=== PATIENT | female | born 1990 | race Caucasian/White ===

== ENCOUNTER 2017-05-26 19:22 | Observation (INO) | payer MEDICAID ==
[~2017-05-26] VITALS: Ht 162.6 cm; Wt 66.7 kg
[~2017-05-26 19:22] MED LIST: CLIN1CAP6 PO; TRAM50 PO
[2017-05-26] MEDS ORDERED: LACTATED RINGER'S 1000 ML INJ 1,000 ML IV PRN (20:41)
[2017-05-26] MEDS ORDERED: ONDANSETRON HCL 4 MG/2 ML VIAL IV PRN (20:45)
[2017-05-26] MEDS ORDERED: SODIUM CHLORID 0.9% 500 ML INJ 500 ML IV PRN (20:45)
--- NOTE | 2017-05-26 20:47 | PD ---
HPI Chief Complaint vaginal bleeding Travel History International Travel<30 Days: No Contact w/Intl Traveler<30Days: No Known Affected Area: No History of Present Illness HPI 26y/o , IUP at [address] Altman and is complicated by 1. h/o IVDA (reports last use 2015) 2. h/o chlamydia in past 3. h/o abnl PAP after last , normal since Patient presents c/o onset of "heavy bleeding" after intercourse tonight at about 6pm. She reports the bleeding started during intercourse and was like a heavy period; although she didn't use a pad, she had to keep wiping the blood and had blood running down her legs. She also reports some small cots about 1cm x 2cm. There were no alleviating factors. She has continued to bleed. She denies any LOF. She reports good FM. She denies any painful ctx or cramping. Para: 1 : 2 Miscarriage: 0 : 0 History Past Medical History Narrative Medical IVDA, last use 2015 Obstetric History Obstetric History FT H/o abnl PAP after 1st delivery, normal since h/o chlamydia Menarche at 11 Menses q month Menses last 4d Past Surgical History Narrative Surgical Denies Family History Narrative Family History DM Social History Narrative Social History h/o IVDA Denies current drugs/EtOH/tobacco Allergies-Medications (Allergen,Severity, Reaction): Coded Allergies: *MDRO Multi-Drug Resistant Organism (Unverified Adverse Reaction, Unknown , 12/19/15) MRSA (wound) - 07/2014 Home Meds Reported Medications Gabapentin 300 Mg Cnh131 Mg PO HS #30 CAP Ref 0 05/26/17 Docosahexaenoic Acid ( Dha)200 Mg Cap Daily 05/26/17 Discontinued Scripts Tramadol Hcl (Ultram)50 Mg Tab50 Mg PO BID PRN (severe pain ) #12 TAB Prov:Alissa Pham MD 12/20/15 Clindamycin Hcl (Clindamycin Hcl)300 Mg Seo825 Mg PO Q6HR 10 Days Prov:Dominic Prieto 12/20/15 Review of Systems Except as stated in HPI: all other systems reviewed are Neg Genitourinary: Vaginal Bleeding Physical Exam Narrative VSS AF, A&Ox3, NAD GENERAL: Well-nourished, well-developed patient. SKIN: Warm and dry. HEAD: Normocephalic and atraumatic. EYES: No scleral icterus. No injection or drainage. ENT: No nasal drainage noted. Mucous membranes pink. Airway patent. NECK: Supple, trachea midline. No JVD. CARDIOVASCULAR: Regular rate and rhythm without murmurs, gallops, or rubs. RESPIRATORY: Breath sounds equal bilateral, clear bilaterally, no wheeze/rhales ABDOMEN/GI: Abdomen soft, non-tender, bowel sounds present, no rebound, no guarding Gravid GENITOURINARY: External Genitalia: intact and normal in appearance BUS glands: normal Cervix: no cervical/vaginal masses, speculum exam reveals vault with dark blood that filled end of speculum, does not appear to be active bleeding at this time, approximately 75cc in vault Dilatation: closed Effacement: thick Station: high Presentation: posterior Membranes: [intact] Uterine Contractions: [no regular ctx, none noted in SAIGE] FHT's: Category: [1] Baseline: [130s] Reactive: [y] Variability: [moderate] Decels: [no decels, good accels] EXTREMITIES: No cyanosis or edema. BACK: Nontender without obvious deformity. No CVA tenderness. NEUROLOGICAL: Awake and alert. Motor and sensory grossly within normal limits. Five out of 5 muscle strength in all muscle groups. Normal speech. MS: grossly normal ROM, gait, muscle strength PSYCH: grossly normal memory, affect Data Data Orders Ob (2e) Additional Admit Info (05/26/17 20:38) Vital Signs (Adult) .ON ADMISSION (05/26/17 20:37) ^ Labor Status (05/26/17 20:37) ^ Non Stress Test (05/26/17 20:37) Cbc No Diff, Includes Plts (05/26/17 20:37) Type And Screen (05/26/17 20:37) Diet Clear Liquid (05/27/17 Breakfast) Code Status (05/26/17 20:41) Vital Signs (Adult) .Per protocol (05/26/17 20:41) Heart (05/26/17 20:41) Lactated Ringer's 1000 Ml Inj (Lr 1000 M (05/26/17 20:41) Sodium Chlorid 0.9% 500 Ml Inj (Ns 500 M (05/26/17 20:45) Ondansetron Inj (Zofran Inj) (05/26/17 20:45) Hold Clot (05/26/17 20:41) Abo/Rh Blood Type (05/26/17 20:41) Resp Oxygen Non Rebreathe Mask (05/26/17 ) Place In Observation (05/26/17 ) Scd Bilateral/Knee High NAHUM.QSHIFT (05/26/17 20:44) Hydroxyzine Pamoate (Vistaril) (05/26/17 21:00) MDM Plan A/P: 26y/o 1. IUP at 27.1 2. Postcoital bleeding: no evidence of placental injury/retroplacental clot on limited bedside U/S, unable to visualize active bleeding from cervix but spme blood pooling in vagina. WD/W Dr. Mckenna, will admit for 23h obsv due to heavier -than-expected VB, continue EFM overnight, check Hgb and T&S as below. Discussed observation with patient/partner who are in agreement; discussed potential for urgent C/S if indicated for /maternal status although unlikely, discussed that with current reassuring status, would not anticipate need for C/S, but discussed risks of procedure if indicated. Consider OB US in am if bleeding continues or if desired by primary Ob, no urgent indication for OB Diagnostics to perform tonight 3. wellbeing: reassuring testing, reactive NST, FKC daily, continue EFM overnight 4. h/o IVDA: patient reports she's been clean since 2016 and partner is clean as well, will check UDS 5. Hgb 11.0 6. O+ Elisa Rodgers MD May 26, 2017 20:47
--- NOTE | 2017-05-26 20:49 | PD ---
History of Present Illness History of Present Illness NST report Indications: IUP at 27w, h/o IVDA, vaginal bleeding Baseline 140s Good accels, no decels, moderate LTV No ctx noted Final dx: IUP at 27w, postcoital bleeding, reassuring testing, reactive for gestational age F/U with continued EFM Elisa Rodgers MD May 26, 2017 20:49
--- NOTE | 2017-05-26 21:02 | PD ---
History of Present Illness History of Present Illness Limited Bedside US report Indications: IUP at 27w. h/o IVDA, vaginal bleeding Limited bedside US performed to assess placenta, position, and JUSTIN, no anatomy survey performed. Findings: placenta appeared grossly normal, no evidence of retroplacental clot noted. JUSTIN 6.01/4.29/2.27/4.21 (16.78). Good movement throughout including Extension/flexion noted. Breech Final dx: IUP at 27, h/o IVDA, postcoital bleeding, limited US without significant findings Elisa Rodgers MD May 26, 2017 21:02
[2017-05-26] MEDS ORDERED: DOCO200C (21:20)
[2017-05-26] MEDS ORDERED: GABA300C5 PO (21:20)
--- NOTE | 2017-05-26 21:49 | HHI.HP ---
History & Physical H&P Observation H&P PI Chief Complaint vaginal bleeding Travel History International Travel<30 Days: No Contact w/Intl Traveler<30Days: No Known Affected Area: No History of Present Illness HPI 26y/o , IUP at 27.[address] Altman and is complicated by 1. h/o IVDA (reports last use 2015) 2. h/o chlamydia in past 3. h/o abnl PAP after last , normal since Patient presents c/o onset of "heavy bleeding" after intercourse tonight at about 6pm. She reports the bleeding started during intercourse and was like a heavy period; although she didn't use a pad, she had to keep wiping the blood and had blood running down her legs. She also reports some small cots about 1cm x 2cm. There were no alleviating factors. She has continued to bleed. She denies any LOF. She reports good FM. She denies any painful ctx or cramping. Para: 1 : 2 Miscarriage: 0 : 0 History (Limited) History Past Medical History Narrative Medical IVDA, last use 2015 Obstetric History Obstetric History FT H/o abnl PAP after 1st delivery, normal since h/o chlamydia Menarche at 11 Menses q month Menses last 4d Past Surgical History Narrative Surgical Denies Family History Narrative Family History DM Social History Narrative Social History h/o IVDA Denies current drugs/EtOH/tobacco Allergies-Medications Allergies-Medications (Allergen,Severity, Reaction): Coded Allergies: *MDRO Multi-Drug Resistant Organism (Unverified Adverse Reaction, Unknown , 12/19/15) MRSA (wound) - 07/2014 Home Meds Reported Medications Gabapentin 300 Mg [id number] Mg PO HS #30 CAP Ref 0 05/26/17 Docosahexaenoic Acid ( Dha)200 Mg Cap Daily 05/26/17 Discontinued Scripts Tramadol Hcl (Ultram)50 Mg Tab50 Mg PO BID PRN (severe pain ) #12 TAB Prov:Alissa Pham MD 12/20/15 Clindamycin Hcl (Clindamycin Hcl)300 Mg Bva359 Mg PO Q6HR 10 Days Prov:Dominic Prieto 12/20/15 ROS Review of Systems Except as stated in HPI: all other systems reviewed are Neg Genitourinary: Vaginal Bleeding Physical Exam Physical Exam Narrative VSS AF, A&Ox3, NAD GENERAL: Well-nourished, well-developed patient. SKIN: Warm and dry. HEAD: Normocephalic and atraumatic. EYES: No scleral icterus. No injection or drainage. ENT: No nasal drainage noted. Mucous membranes pink. Airway patent. NECK: Supple, trachea midline. No JVD. CARDIOVASCULAR: Regular rate and rhythm without murmurs, gallops, or rubs. RESPIRATORY: Breath sounds equal bilateral, clear bilaterally, no wheeze/rhales ABDOMEN/GI: Abdomen soft, non-tender, bowel sounds present, no rebound, no guarding Gravid GENITOURINARY: External Genitalia: intact and normal in appearance BUS glands: normal Cervix: no cervical/vaginal masses, speculum exam reveals vault with dark blood that filled end of speculum, does not appear to be active bleeding at this time, approximately 75cc in vault Dilatation: closed Effacement: thick Station: high Presentation: posterior Membranes: [intact] Uterine Contractions: [no regular ctx, none noted in SAIGE] FHT's: Category: [1] Baseline: [130s] Reactive: [y] Variability: [moderate] Decels: [no decels, good accels] EXTREMITIES: No cyanosis or edema. BACK: Nontender without obvious deformity. No CVA tenderness. NEUROLOGICAL: Awake and alert. Motor and sensory grossly within normal limits. Five out of 5 muscle strength in all muscle groups. Normal speech. MS: grossly normal ROM, gait, muscle strength PSYCH: grossly normal memory, affect Data Data Data Orders Ob (2e) Additional Admit Info (05/26/17 20:38) Vital Signs (Adult) .ON ADMISSION (05/26/17 20:37) ^ Labor Status (05/26/17 20:37) ^ Non Stress Test (05/26/17 20:37) Cbc No Diff, Includes Plts (05/26/17 20:37) Type And Screen (05/26/17 20:37) Diet Clear Liquid (05/27/17 Breakfast) Code Status (05/26/17 20:41) Vital Signs (Adult) .Per protocol (05/26/17 20:41) Heart (05/26/17 20:41) Lactated Ringer's 1000 Ml Inj (Lr 1000 M (05/26/17 20:41) Sodium Chlorid 0.9% 500 Ml Inj (Ns 500 M (05/26/17 20:45) Ondansetron Inj (Zofran Inj) (05/26/17 20:45) Hold Clot (05/26/17 20:41) Abo/Rh Blood Type (05/26/17 20:41) Resp Oxygen Non Rebreathe Mask (05/26/17 ) Place In Observation (05/26/17 ) Scd Bilateral/Knee High NAHUM.QSHIFT (05/26/17 20:44) Hydroxyzine Pamoate (Vistaril) (05/26/17 21:00) MDM MDM Plan A/P: 26y/o 1. IUP at 27.1 2. Postcoital bleeding: no evidence of placental injury/retroplacental clot on limited bedside U/S, unable to visualize active bleeding from cervix but spme blood pooling in vagina. WD/W Dr. Mckenna, will admit for 23h obsv due to heavier -than-expected VB, continue EFM overnight, check Hgb and T&S as below. Discussed observation with patient/partner who are in agreement; discussed potential for urgent C/S if indicated for /maternal status although unlikely, discussed that with current reassuring status, would not anticipate need for C/S, but discussed risks of procedure if indicated. Consider OB US in am if bleeding continues or if desired by primary Ob, no urgent indication for OB Diagnostics to perform tonight 3. wellbeing: reassuring testing, reactive NST, FKC daily, continue EFM overnight 4. h/o IVDA: patient reports she's been clean since 2016 and partner is clean as well, will check UDS 5. Hgb 11.0 6. O+ Elisa Rodgers MD May 26, 2017 20:47 Elisa Rodgers MD May 26, 2017 21:49
[2017-05-26 23:00] VITALS: BP 110/62; PULSE 78; RESP 18; TEMP 98
[2017-05-27 00:02] LABS: AMPHETAMINE, URINE NEG (NEG); BARBITURATES, URINE NEG (NEG); COCAINE, URINE NEG (NEG)
[2017-05-27 01:03] LABS: HEMATOCRIT 33.1 % (35.0-46.0); MEAN CELL VOLUME 87.9 FL (80.0-100.0); MEAN CORPUSCULAR HEMOGLOBIN 29.1 PG (27.0-34.0); MEAN CORPUSCULAR HGB CONC 33.1 % (32.0-36.0); PLATELET COUNT 211 TH/MM3 (150-450); RED BLOOD COUNT 3.77 MIL/MM3 (4.00-5.30); RED CELL DISTRIBUTION WIDTH 13.5 % (11.6-17.2); REVIEW FLAG FINAL; WHITE BLOOD COUNT 8.7 TH/MM3 (4.0-11.0)
[2017-05-27 06:22] LABS: MRSA PCR NEGATIVE (NEGATIVE); STAPH AUREUS PCR NEGATIVE (NEGATIVE)
[2017-05-27 07:41] VITALS: RESP 18; TEMP 98
[2017-05-27 07:42] VITALS: BP 92/57; PULSE 63
--- NOTE | 2017-05-27 09:15 | HHI.DCPOC ---
Discharge Care Plan Report Symptoms to Your Doctor -Temperature above 100.5 degrees -Redness, of incision or excessive or foul smelling drainage -Unusual pain or calf pain -Increased vaginal bleeding -Painful or difficulty urinating -Feelings of extreme sadness or anxiety after 2 weeks Goals to Promote Your Health * To prevent worsening of your condition and complications * To maintain your health at the optimal level Directions to Meet Your Goals Take your medications as prescribed Follow your dietary instruction Follow activity as directed Ensure plenty of rest for recovery Drink fluids for hydration Keep your appointments as scheduled Take your immunizations and boosters as scheduled If your symptoms worsen call your PCP, if no PCP go to Urgent Care Center or Emergency Room Smoking is Dangerous to Your Health. Avoid second hand smoke Call the 24-hour crisis hotline for domestic abuse at Talia Altman MD May 27, 2017 09:15
--- NOTE | 2017-05-27 09:15 | PD.OB.ANTE ---
Subjective Interval History 26 yo wf at 27 weeks with episode significant bleeding post sex. No hx previa. Good PNC with HOGA Has resolved and work up reassuring. Ok to discharge this am and have seen this week with complete sonogram for completeness. Objective Vital Signs Vital Signs Date Time Temp Pulse Resp B/P Pulse Ox O2 Delivery O2 Flow Rate FiO2 05/27/17 07:42 63 92/57 05/27/17 07:41 98.0 18 05/26/17 23:00 78 18 110/62 05/26/17 23:00 98.0 Lab & Micro Results Test 05/26/17 05/27/17 05/27/17 23:30 00:26 00:30 Urine Opiates Screen NEG Urine Barbiturates Screen NEG Urine Amphetamines Screen NEG Urine Benzodiazepines Screen NEG Urine Cocaine Screen NEG Urine Cannabinoids Screen NEG White Blood Count 8.7 TH/MM3 Red Blood Count 3.77 MIL/MM3 Hemoglobin 11.0 GM/DL Hematocrit 33.1 % Mean Corpuscular Volume 87.9 FL Mean Corpuscular Hemoglobin 29.1 PG Mean Corpuscular Hemoglobin 33.1 % Concent Red Cell Distribution Width 13.5 % Platelet Count 211 TH/MM3 Mean Platelet Volume 9.5 FL Hematology Comments Blood Type O POSITIVE Blood Bank Comment Band and Hold Nasal Screen MRSA (PCR) NEGATIVE Staphylococcus aureus NEGATIVE (PCR)(LAB) Physical Exam GENERAL: Well-nourished, well-developed patient. CARDIOVASCULAR: Regular rate and rhythm without murmurs, gallops, or rubs. RESPIRATORY: Breath sounds equal bilaterally. No accessory muscle use. ABDOMEN/GI: Abdomen soft, non-tender. Fundus: [-] GENITOURINARY: External Genitalia: intact and normal in appearance Cervix: [-] Dilatation: [-] Effacement: [-] Station: [-] Presentation: [-] Membranes: [-] Uterine Contractions: [-] FHT's: Category: [-] Baseline: [-] Reactive: [-] Variability: [-] Decels: [-] EXTREMITIES: No cyanosis or edema, non-tender, without signs of DVT. Talia Altman MD May 27, 2017 09:15
[2017-05-30 10:44] LABS: ECSTASY (MDMA) UR NEG (NEG); HEROIN (6-ACETYLMORPHINE) UR NEG (NEG); OBMETHADONE UR NEG (NEG); PHENCYCLIDINE URINE NEG (NEG)
[2017-05-30 10:45] LABS: BATH SALTS (MDPV) UR NEG (NEG); K2 SPICE UR NEG (NEG); OXYCODONE (PERCODAN) NEG (NEG)
[2017-05-30 10:46] LABS: GABAPENTIN UR POS (NEG); HYDROMORPHONE U NEG (NEG)
== END 2017-05-27 10:06 | disposition home or self-care (01) ==
LOC: HOBED 19:22 → H2EA 20:42
PROVIDERS: ADMIT Obstetrics & Gynecology; ATTEND Obstetrics & Gynecology
DX: O46.8X2 Other antepartum hemorrhage, second trimester (principal); Z79.899 Other long term (current) drug therapy; Z3A.27 27 weeks gestation of pregnancy
CPT/HCPCS: 80307; 85027; 86900; 86901; 87640; 87641; 99285; G0378; G0481

== ENCOUNTER 2017-07-25 16:15 | Observation (INO) | payer MEDICAID ==
[~2017-07-25 16:15] MED LIST changes: -CLIN1CAP6 PO; +DOCO200C; +GABA300C5 PO; -TRAM50 PO
[2017-07-25] MEDS ORDERED: SODIUM CHLORIDE 0.9% FLUSH 10 ML FLUSH IV FLUSH PRN (17:30)
[2017-07-25] MEDS ORDERED: ONDANSETRON ODT 4 MG TAB PO PRN (17:30)
[2017-07-25] MEDS ORDERED: ZOLPIDEM TARTRATE 5 MG TAB PO PRN (17:30)
[2017-07-25] MEDS ORDERED: cloNIDine HCL 0.1 MG TAB PO PRN (17:30)
--- NOTE | 2017-07-25 17:43 | HHI.HP ---
HPI Chief Complaint High blood pressure and continued drug abuse Date Seen: Jul 25, 2017 Time Seen: 17:29 Travel History International Travel<30 Days: No Contact w/Intl Traveler<30Days: No Known Affected Area: No History of Present Illness HPI Patient 27-year-old white female at 36 weeks [address] of [address]. Garrison who has a long history of IV drug abuse. She was user for quite some time and get clean after a while is been clean up until recently when she relapses have been using cocaine and IV opiates recently, she was checked today and noted to have a blood pressure 140/90 on several occasions and was sent OB ED. She denies bleeding or leakage of fluid. Baby is active. heart rate tracing is reactive and she is having an occasional contraction. She is currently acted Weeks Gestation: 36 Para: 1 : 2 History Obstetric History Obstetric History One vaginal delivery Social History Narrative Social History History of IV drug abuse and cocaine use. Opiate use Alcohol Use: Yes Tobacco Use: Yes Substance Abuse: Yes Allergies-Medications (Allergen,Severity, Reaction): Coded Allergies: *MDRO Multi-Drug Resistant Organism (Unverified Adverse Reaction, Unknown , 12/19/15) MRSA (wound) - 07/2014 Home Meds Reported Medications Gabapentin (Gabapentin) 300 Mg Cap, 300 MG PO HS, #30 CAP 0 Refills 05/26/17 Docosahexaenoic Acid ( Dha) 200 Mg Cap, DAILY 05/26/17 Review of Systems General / Constitutional: No: Fever, Weight Gain, Chills, Other Eyes: No: Diploplia, Blurred Vision, Visual changes, Pain, Photophobia HENT: No: Headaches, Vertigo, Lightheadedness Cardiovascular: No: Irregular Rhythm, Chest Pain or Discomfort, Palpitations, Tachycardia, Syncope, Varicosities, Edema, Cyanosis Respiratory: No: Cough, Short of Breath, Other Gastrointestinal: No: Nausea, Vomiting, Diarrhea Genitourinary: No: Decreased Urinary Output, Oliguria Musculoskeletal: No: Limited ROM, Weakness, Cramping, Edema, Pain Skin: No Rash, No Itching, No Dryness, No Lumps, No Change in Pigmentation, No Change in Nails, No Alopecia, No Lesions Neurologic: No: Weakness, Dizziness, Syncope, Focal Abnormalities, Coordination Problem, Headache, Slurred Speech, Seizures Psychiatric: No: Depression, Suicidal Ideations, Homicidal Ideation Endocrine: No: Heat Intolerance, Cold Intolerance, Polydipsia, Polyuria, Other Physical Exam Narrative GENERAL: Well-nourished, well-developed patient. SKIN: Warm and dry. HEAD: Normocephalic and atraumatic. EYES: No scleral icterus. No injection or drainage. ENT: No nasal drainage noted. Mucous membranes pink. Airway patent. NECK: Supple, trachea midline. No JVD. CARDIOVASCULAR: Regular rate and rhythm without murmurs, gallops, or rubs. RESPIRATORY: Breath sounds equal bilaterally. No accessory muscle use. BREASTS: Bilateral exam showed no masses , no retractions, no nipple discharge. ABDOMEN/GI: Abdomen soft, non-tender, bowel sounds present, no rebound, no guarding Gravid to [-36] weeks size Fundal Height: [-34] GENITOURINARY: External Genitalia: intact and normal in appearance BUS glands: [-] Cervix: [-] Dilatation: [-2-3] Effacement: [-60] Station: [-1] Presentation: [vtx-] by US Membranes: [intact ] Uterine Contractions: [occasional-] FHT's: Category: [1-] Baseline: [-133] Reactive: [-yes] Variability: [mod-] Decels: [none-] EXTREMITIES: No cyanosis or edema. BACK: Nontender without obvious deformity. No CVA tenderness. NEUROLOGICAL: Awake and alert. Motor and sensory grossly within normal limits. Five out of 5 muscle strength in all muscle groups. Normal speech. Caprini VTE Risk Assessment Caprini VTE Risk Assessment: No/Low Risk (score <= 1) Caprini Risk Assessment Model Point Value = 1 Point Value = 2 Point Value = 3 Point Value = 5 Age 41-60 Minor surgery BMI > 25 kg/m2 Swollen legs Varicose veins or History of unexplained or recurrent spontaneous Oral contraceptives or hormone replacement Sepsis (< 1 month) Serious lung disease, including pneumonia (< 1 month) Abnormal pulmonary function Acute myocardial infarction Congestive heart failure (< 1 month) History of inflammatory bowel disease Medical patient at bed rest Age 61-74 Arthroscopic surgery Major open surgery (> 45 min) Laparoscopic surgery (> 45 min) Malignancy Confined to bed (> 72 hours) Immobilizing plaster cast Central venous access Age >= 75 History of VTE Family history of VTE Factor V Leiden Prothrombin [id number] Lupus anticoagulant Anticardiolipin antibodies Elevated serum homocysteine Heparin-induced thrombocytopenia Other congenital or acquired thrombophilia Stroke (< 1 month) Elective arthroplasty Hip, pelvis, or leg fracture Acute spinal cord injury (< 1 month) Prophylaxis Regimen Total Risk Factor Score Risk Level Prophylaxis Regimen 0-1 Low Early ambulation 2 Moderate Order ONE of the following: *Sequential Compression Device (SCD) *Heparin 5000 units SQ BID 3-4 Higher Order ONE of the following medications: *Heparin 5000 units SQ TID *Enoxaparin/Lovenox 40 mg SQ daily (WT < 150 kg, CrCl > 30 mL/min) *Enoxaparin/Lovenox 30 mg SQ daily (WT < 150 kg, CrCl > 10-29 mL/min) *Enoxaparin/Lovenox 30 mg SQ BID (WT < 150 kg, CrCl > 30 mL/min) AND/OR *Sequential Compression Device (SCD) 5 or more Highest Order ONE of the following medications: *Heparin 5000 units SQ TID (Preferred with Epidurals) *Enoxaparin/Lovenox 40 mg SQ daily (WT < 150 kg, CrCl > 30 mL/min) *Enoxaparin/Lovenox 30 mg SQ daily (WT < 150 kg, CrCl > 10-29 mL/min) *Enoxaparin/Lovenox 30 mg SQ BID (WT < 150 kg, CrCl > 30 mL/min) AND *Sequential Compression Device (SCD) Data Data Orders Orders Ob (2e) Additional Admit Info (07/25/17 17:27) Place In Observation (07/25/17 ) Diet Regular Basic (07/25/17 Dinner) Vital Signs (Adult) [id number] AWAKE (07/25/17 17:25) Heart (07/25/17 17:25) Activity Bed Rest With Brp (07/25/17 17:25) Complete Blood Count With Diff (07/25/17 17:25) Basic Metabolic Panel (Bmp) (07/25/17 17:25) Hepatic Functional Panel (07/25/17 17:25) Total Protein 24hr Urine (07/25/17 17:25) Uric Acid (07/25/17 17:25) Urinalysis - C+S If Indicated (07/25/17 17:25) [id number]-Pktek-Iron Prenat (Stuartna (07/26/17 09:00) Sodium Chloride 0.9% Flush (Ns Flush) (07/25/17 21:00) Sodium Chloride 0.9% Flush (Ns Flush) (07/25/17 17:30) Zolpidem (Ambien) (07/25/17 17:30) Ondansetron Odt (Zofran Odt) (07/25/17 17:30) Us Ob Limited (07/26/17 09:00) Ob/Psych Drug Screen, Urine (07/25/17:25) Hold Clot (07/25/17:25) Ferrous Sulfate (Ferrous Sulfate) (07/25/17 21:00) Clonidine (Catapres) (07/25/17 17:30) Hydroxyzine Pamoate (Vistaril) (07/25/17 17:30) Assessment/Plan Assessment and Plan Is a 27-year-old white female at 36 weeks tomorrow presents for evaluation of hypertension. She has a history of IV drug abuse and relapsed the use of IV drugs opiates. heart rate tracing is reactive she is having occasional contraction, cervix 2-3 cm 60% -1 vertex confirmed by ultrasound. Only occasional contractions seen. No bleeding or leakage of fluid. Plan patient is to was discussed with Dr. Altman 1 admit the patient for observation and she is within orders. Check a urine and PIH labs and follow-up accordingly Deepak Weinberg II, MD Jul 25, 2017 17:42
[2017-07-25 20:09] LABS: AUTOMATED NEUTROPHIL # 4.9 TH/MM3 (1.8-7.7); BASOPHIL # 0.1 TH/MM3 (0-0.2); BASOPHIL % 0.9 % (0.0-2.0); EOSINOPHIL # 0.1 TH/MM3 (0-0.4); EOSINOPHIL % 1.4 % (0.0-4.0); HEMATOCRIT 38.1 % (35.0-46.0); HEMO FLAGS DIFF FINAL; LYMPH % 25.1 % (9.0-44.0); LYMPHOCYTE # 1.9 TH/MM3 (1.0-4.8); MEAN CELL VOLUME 86.9 FL (80.0-100.0); MEAN CORPUSCULAR HEMOGLOBIN 29.1 PG (27.0-34.0); MEAN CORPUSCULAR HGB CONC 33.5 % (32.0-36.0); MONO % 6.5 % (0.0-8.0); NEUT % 66.1 % (16.0-70.0); PLATELET COUNT 244 TH/MM3 (150-450); RED BLOOD COUNT 4.39 MIL/MM3 (4.00-5.30); RED CELL DISTRIBUTION WIDTH 13.4 % (11.6-17.2); WHITE BLOOD COUNT 7.4 TH/MM3 (4.0-11.0)
[2017-07-25 20:12] LABS: BACTERIA, URINE RARE /hpf; BLOOD, URINE NEG (NEG); COMMENT (UR) CULT NOT INDICATED; CULTURE IF INDICATED CULT NOT INDICATED; GLUCOSE,URINE NEG (NEG); KETONE, URINE NEG (NEG); NITRITE,URINE NEG (NEG); PH, URINE 6.5 (5.0-8.5); SQUAMOUS EPITHELIAL CELL URINE 1 /hpf (0-5); URINE COLOR YELLOW (YELLW/STRAW)
[2017-07-25 20:37] LABS: TOTAL BILIRUBIN ADULT 0.8 MG/DL (0.2-1.0)
[2017-07-25 20:41] LABS: BICARBONATE 25.9 MEQ/L (21.0-32.0); INDIRECT BILIRUBIN 0.7 MG/DL (0.0-0.8); URIC ACID 5.2 MG/DL (2.6-6.0)
[2017-07-25 21:09] LABS: POTASSIUM 4.2 MEQ/L (3.5-5.1)
[2017-07-25] MEDS: FERROUS SULFATE 325 MG (65 MG ELEMENTAL IRON) TAB PO SCH (21:38)
[2017-07-25] MEDS: SODIUM CHLORIDE 0.9% FLUSH 10 ML FLUSH IV FLUSH SCH (21:39)
[2017-07-26] VITALS (23 sets, daily range): BP systolic 115–126; BP diastolic 66–80; PULSE 48–78; RESP 16–18; TEMP 97.8
[2017-07-26] MEDS: SODIUM CHLORIDE 0.9% FLUSH 10 ML FLUSH IV FLUSH SCH (09:00)
[2017-07-26] MEDS ORDERED: MULTIVIT/MIN/PREN/FOL AC/IRON PRENATAL TAB PO SCH (09:00)
--- NOTE | 2017-07-26 09:46 | HHI.DCPOC ---
Discharge Care Plan Diagnosis: (1) IV drug abuse complicating Goals to Promote Your Health * To prevent worsening of your condition and complications * To maintain your health at the optimal level Directions to Meet Your Goals Take your medications as prescribed Follow your dietary instruction Follow activity as directed Keep your appointments as scheduled Take your immunizations and boosters as scheduled If your symptoms worsen call your PCP, if no PCP go to Urgent Care Center or Emergency Room Smoking is Dangerous to Your Health. Avoid second hand smoke Call the 24-hour hour crisis hotline for domestic abuse at Cedric Mustafa MD, R2 Jul 26, 2017 09:46
[2017-07-26] MEDS: FERROUS SULFATE 325 MG (65 MG ELEMENTAL IRON) TAB PO SCH (10:38)
[2017-07-31 07:57] LABS: BATH SALTS (MDPV) UR NEG (NEG); ECSTASY (MDMA) UR NEG (NEG); HEROIN (6-ACETYLMORPHINE) UR NEG (NEG); K2 SPICE UR NEG (NEG); OBMETHADONE UR NEG (NEG); PHENCYCLIDINE URINE NEG (NEG)
[2017-07-31 08:00] LABS: GABAPENTIN UR POS (NEG)
[2017-07-31 08:01] LABS: HYDROMORPHONE U POS (NEG)
== END 2017-07-26 12:42 | disposition home or self-care (01) ==
LOC: HOBED 16:15 → H2EA 17:28
PROVIDERS: ADMIT Obstetrics & Gynecology; ATTEND Obstetrics & Gynecology
DX: O99.323 Drug use complicating pregnancy, third trimester (principal); F19.10 Other psychoactive substance abuse, uncomplicated; O16.3 Unspecified maternal hypertension, third trimester; O99.333 Smoking (tobacco) complicating pregnancy, third trimester; Z3A.36 36 weeks gestation of pregnancy
CPT/HCPCS: 59025; 76815; 76937; 80048; 80076; 80307; 81001; 84550; 85025; 99285; G0378; G0481; 76816

== ENCOUNTER 2017-07-28 04:10 | Inpatient (IN) | payer MEDICAID ==
[2017-07-28] VITALS (27 sets, daily range): BP systolic 123–162; BP diastolic 72–101; PULSE 47–68; RESP 16–20; TEMP 97.6–98.1
[~2017-07-28] VITALS: Ht 162.6 cm; Wt 66.0 kg
[2017-07-28] MEDS: LACTATED RINGER'S 1000 ML INJ 1,000 ML IV SCH ×2 (04:50→20:53)
[2017-07-28] MEDS ORDERED: LACTATED RINGER'S 1000 ML INJ 1,000 ML IV PRN (04:50)
[2017-07-28] MEDS ORDERED: SODIUM CHLORID 0.9% 500 ML INJ 500 ML IV PRN (05:00)
[2017-07-28] MEDS ORDERED: CITRIC ACID-SODIUM CITRATE LIQ 30 ML UDC PO SCH (05:00)
[2017-07-28] MEDS ORDERED: OXYTOCIN 30 UNITS-500ML PREMIX 500 ML IV ONE (05:00)
[2017-07-28] MEDS ORDERED: MINERAL OIL 10 ML VIAL TOPICAL PRN (05:00)
[2017-07-28] MEDS ORDERED: PENICILLIN G POTASSIUM INJ 5,000,000 UNITS in SODIUM CHLORIDE 0.9% INJ 100 ML IV ONE (05:00)
[2017-07-28] MEDS ORDERED: ONDANSETRON HCL 4 MG/2 ML VIAL IV PUSH PRN (05:00)
[2017-07-28] MEDS ORDERED: LIDOCAINE HCL 1% 50 ML VIAL I-DERMAL PRN (05:00)
[2017-07-28] MEDS ORDERED: LIDOCAINE HCL 1% 50 ML VIAL INFIL PRN (05:00)
[2017-07-28] MEDS ORDERED: SODIUM CHLOR 0.9% 1000 ML INJ 1,000 ML IV PRN (05:10)
--- NOTE | 2017-07-28 05:14 | HHI.HP ---
History & Physical H&P Patient Name: Ericka Patton Unit Number: [id number] Date of : 1990 Patient Status: Admitted Inpatient Attending Doctor: Talia Altman MD HPI HPI Chief Complaint Contractions and leaking fluid Date Seen: Jul 28, 2017 Time Seen: 05:01 Travel History International Travel<30 Days: No Contact w/Intl Traveler<30Days: No Known Affected Area: No History of Present Illness HPI 27-year-old 2 para 1 at 36 weeks 2 days gestation who reports that she was awakened about 3:30 with contractions and then had spontaneous leakage of fluid. She was marti every 2-3 minutes upon arrival with grossly ruptured membranes and meconium fluid noted. She is 4 cm 80% effaced -2 station and vertex. Weeks Gestation: 36 Para: 1 : 2 History (Limited) History Past Medical History Narrative Medical History of opiate addiction and cocaine positive drug screen and 3 days ago. She has a history of MRSA with a recent negative screen in May. She is on gabapentin 300mg 3 times a day Obstetric History Obstetric History One prior term vaginal delivery 7 lbs. 11 oz. care this with Dr. Altman Past Surgical History Narrative Surgical Skin abscess Family History Family History: Negative Social History Alcohol Use: No Tobacco Use: No Substance Abuse: Yes (opiates and cocaine) Allergies-Medications Allergies-Medications (Allergen,Severity, Reaction): Coded Allergies: *MDRO Multi-Drug Resistant Organism (Unverified Adverse Reaction, Unknown , 12/19/15) MRSA (wound) - 07/2014 Home Meds Reported Medications Gabapentin (Gabapentin) 300 Mg Cap, 300 MG PO HS, #30 CAP 0 Refills 05/26/17 Docosahexaenoic Acid ( Dha) 200 Mg Cap, DAILY 05/26/17 ROS Review of Systems Except as stated in HPI: all other systems reviewed are Neg Physical Exam Physical Exam Narrative GENERAL: Well-nourished, well-developed patient. SKIN: Warm and dry, no abscess HEAD: Normocephalic and atraumatic. EYES: No scleral icterus. No injection or drainage. ENT: No nasal drainage noted. Mucous membranes pink. Airway patent. NECK: Supple, trachea midline. No JVD. CARDIOVASCULAR: Regular rate and rhythm without murmurs, gallops, or rubs. RESPIRATORY: Breath sounds equal bilaterally. No accessory muscle use. ABDOMEN/GI: Abdomen soft, non-tender, bowel sounds present, no rebound, no guarding Gravid to [-] weeks size Fundal Height: [-35] GENITOURINARY: External Genitalia: intact and normal in appearance BUS glands: [Normal-] Cervix: [-] Dilatation: [4-] Effacement: [80-] Station: [-2-] Presentation: [-v] Membranes: [ruptured, meconium] Uterine Contractions: [-Every 2-3 moderate] FHT's: Category: [1-] Baseline: [140-] Reactive: [-] Variability: [Moderate-] Decels: [-] EXTREMITIES: No cyanosis or edema. BACK: Nontender without obvious deformity. No CVA tenderness. NEUROLOGICAL: Awake and alert. Motor and sensory grossly within normal limits. Five out of 5 muscle strength in all muscle groups. Normal speech. Data Data Data Orders Orders Ob (2e) Additional Admit Info (07/28/17 04:32) Admit To Inpatient (07/28/17 ) Code Status (07/28/17 04:50) Vital Signs (Adult) .Per protocol (07/28/17 04:50) Activity Oob Ad Apryl (07/28/17 04:50) Heart (07/28/17 04:50) Amnioinfusion (07/28/17 04:50) Urinary Catheter Management .ONCE (07/28/17 04:50) Diet Npo (07/28/17 Breakfast) Lactated Ringer's 1000 Ml Inj (Lr 1000 M (07/28/17 04:50) Lactated Ringer's 1000 Ml Inj (Lr 1000 M (07/28/17 04:50) Sodium Chlorid 0.9% 500 Ml Inj (Ns 500 M (07/28/17 05:00) Sodium Chlor 0.9% 1000 Ml Inj (Ns 1000 M (07/28/17 05:10) Lidocaine 1% Inj (50 Ml) (Xylocaine 1% I (07/28/17 05:00) Citric Acid-Sodium Citrate Liq (Bicitra (07/28/17 05:00) Ondansetron Inj (Zofran Inj) (07/28/17 05:00) Fentanyl Inj (Fentanyl Inj) (07/28/17 05:00) Fentanyl Inj (Fentanyl Inj) (07/28/17 05:00) Penicillin G Potassium Inj (Pfizerpen-G (07/28/17 05:00) Penicillin G Potassium Inj (Pfizerpen-G (07/28/17 09:00) Complete Blood Count With Diff (07/28/17 04:50) Hold Clot (07/28/17 04:50) Abo/Rh Blood Type (07/28/17 04:50) Urinalysis - C+S If Indicated (07/28/17 04:50) Resp Oxygen Non Rebreathe Mask (07/28/17 ) ^ Epidural / Intrathecal Infus (07/28/17 04:50) Oxytocin 30 Units-500ml Premix (Pitocin (07/28/17 05:00) Lidocaine 1% Inj (50 Ml) (Xylocaine 1% I (07/28/17 05:00) Light Mineral Oil (Muri-Lube Oil) (07/28/17 05:00) Inpatient Certification (07/28/17 ) Specimen To Be Collected PRN (07/28/17 04:50) MDM MDM Medical Record Reviewed: Yes Narrative Course / MDM Assessment: 27-year-old 2 para 1 at 36+ weeks' gestation in early active labor, #2 history of substance abuse this , #3 GBS unknown Plan: Admit for labor management. Penicillin for GBS prophylaxis. Dr. Cervantes was notified. Brandin Herr MD Jul 28, 2017 05:01 Brandin Herr MD Jul 28, 2017 05:14
[2017-07-28] MEDS ORDERED: PREN1TAB60 (05:20)
[2017-07-28] MEDS ORDERED: GABA300C5 PO (05:20)
[2017-07-28 05:27] LABS: BLOOD, URINE NEG (NEG); COMMENT (UR) CULT NOT INDICATED; CULTURE IF INDICATED CULT NOT INDICATED; GLUCOSE,URINE NEG (NEG); KETONE, URINE NEG (NEG); NITRITE,URINE NEG (NEG); SQUAMOUS EPITHELIAL CELL URINE 1 /hpf (0-5); TRANSITIONAL EPI CELLS, URINE 1 /hpf; URINE COLOR YELLOW (YELLW/STRAW)
[2017-07-28] MEDS ORDERED: OXYTOCIN 10 UNIT/ML AMP ONE (05:46)
[2017-07-28] MEDS ORDERED: ZOLPIDEM TARTRATE 5 MG TAB PO PRN (06:00)
[2017-07-28] MEDS ORDERED: BENZOCAINE 20% TOPICAL SPRAY 60 ML CAN TOPICAL PRN (06:00)
[2017-07-28] MEDS ORDERED: DOCUSATE SODIUM 50 MG/SENNA 8.6 MG TAB PO PRN (06:00)
[2017-07-28] MEDS ORDERED: ALUMINUM/MAGNESIUM/SIMETH 30 ML CUP PO PRN (06:00)
[2017-07-28] MEDS ORDERED: ONDANSETRON ODT 4 MG TAB PO PRN (06:00)
[2017-07-28] MEDS ORDERED: WITCH HAZEL 50%/GLYCERIN 12.5% 40 PAD JAR TOPICAL PRN (06:00)
--- NOTE | 2017-07-28 06:04 | PD.OB.DELI ---
Weeks gestation: 36 Gest age assessed date: Jul 28, 2017 Gest age assessed time: 04:50 Pt started active labor?: Yes Active labor start date: Jul 28, 2017 Active labor start time: 04:50 Medical induction of labor?: No Artificial rupture of membrane: No Anesthesia: None Episiotomy: None Vaginal Delivery: Normal, Precipitous Presentation: Occiput anterior, Vertex Nuchal Cord: None Delayed cord clamping (45 sec): No Infant: Male Delivery date: Jul 28, 2017 Delivery time: 05:44 One Minute : 9 Five Minute : 9 Weight: 5#6oz Placenta: Spontaneous delivery, Intact, 3 vessel cord Laceration: No lacerations Additional Information Called to the pt room for imminent delivery. Upon my arrival in the room the infant was already out. Cord blood samples obtained. The placenta delivered spontaneously. It was grossly normal and apparently intact. Hemostasis was obtained with massage and IM [id number] units. Brandin Herr MD Jul 28, 2017 06:04
[2017-07-28] MEDS: IBUPROFEN 600 MG TAB PO PRN ×2 (06:09→15:37)
[2017-07-28] MEDS: ACETAMINOPHEN 325 MG TAB PO PRN ×2 (06:10→15:36)
[2017-07-28] MEDS ORDERED: OXYTOCIN 10 UNIT/ML AMP IM ONE (06:15)
[2017-07-28] MEDS ORDERED: NIFEdipine 10 MG CAP ONE (07:08)
[2017-07-28] MEDS ORDERED: NIFEdipine 10 MG CAP PO ONE (07:45)
[2017-07-28] MEDS ORDERED: PENICILLIN G POTASSIUM INJ 2,500,000 UNITS in SODIUM CHLORIDE 0.9% INJ 100 ML IV SCH (09:00)
--- NOTE | 2017-07-28 15:07 | HHI.OB ---
Subjective Post Day: 0 Remarks Has not had blood work since admission thisam, precipitous delivery. Multiple attempts at obtaining labs unsuccessful. IV access team consulted. No ARTIS, no ruq pain. saw spots once this morning. Not present now Objective Vitals/I&O Vital Signs Date Time Temp Pulse Resp B/P (MAP) Pulse Ox O2 Delivery O2 Flow Rate FiO2 07/28/17 13:00 98.0 65 16 128/96 (107) 07/28/17 08:45 132/83 (99) 07/28/17 07:48 18 07/28/17 07:45 55 132/92 (105) 07/28/17 07:38 18 07/28/17 07:30 52 16 143/101 (115) 07/28/17 07:16 53 147/99 (115) 07/28/17 07:10 53 162/99 (120) 07/28/17 07:02 56 159/101 (120) 07/28/17 07:00 50 07/28/17 06:56 98.1 07/28/17 06:56 58 18 159/97 (117) 07/28/17 06:55 66 07/28/17 06:45 52 07/28/17 06:30 56 150/98 (115) 07/28/17 06:01 55 150/91 (110) 07/28/17 05:56 47 18 154/88 (110) Objective Remarks GENERAL: Well-nourished, well-developed patient. CARDIOVASCULAR: Regular rate and rhythm without murmurs, gallops, or rubs. RESPIRATORY: Breath sounds equal bilaterally. No accessory muscle use. ABDOMEN/GI: Abdomen soft, non-tender. Fundus: Firm, non-tender at umbilicus. GENITOURINARY: Light to moderate bleeding. EXTREMITIES: No cyanosis, non-tender, without signs of DVT. trace edema, normal reflexes Medications and IVs Current Medications Medications (Trade) Dose Ordered Sig/Jagruti Route Start Time Stop Time Status Last Admin Lactated Ringer's 1,000 ml @ 125 mls/hr Q8H IV 07/28/17 04:50 Lactated Ringer's 1,000 ml @ 3,000 mls/hr Q20M PRN IV 07/28/17 04:50 Sodium Chloride 1,000 ml @ 100 mls/hr Q10H PRN IV 07/28/17 05:10 (Xylocaine 1% Inj (50 ml)) 0.1 ml UNSCH X1 PRN I-DERMAL 07/28/17 05:00 07/31/17 04:59 (Bicitra Liq) 30 ml RETAIL KEY HOLDER PO 07/28/17 05:00 08/01/17 04:59 (Zofran Inj) 4 mg Q6H PRN IV PUSH 07/28/17 05:00 (fentaNYL INJ) 50 mcg Q1H PRN IV PUSH 07/28/17 05:00 (fentaNYL INJ) 100 mcg Q1H PRN IV PUSH 07/28/17 05:00 Penicillin G Potassium 2664215 units/Sodium Chloride 100 ml @ 200 mls/hr Q4H IV 07/28/17 09:00 (Xylocaine 1% Inj (50 ml)) 10 ml UNSCH X1 PRN INFIL 07/28/17 05:00 07/30/17 04:59 (Muri-Lube Oil) 10 ml UNSCH PRN TOPICAL 07/28/17 05:00 (Tylenol) 650 mg Q4H PRN PO 07/28/17 06:00 07/28/17 06:10 (Motrin) 600 mg Q6H PRN PO 07/28/17 06:00 07/28/17 06:09 (Americaine 20% Top Spr) 1 spray Q4H PRN TOPICAL 07/28/17 06:00 (Tucks Pads) 1 applic QID PRN TOPICAL 07/28/17 06:00 (Amelia-Colace) 2 tab Q12H PRN PO 07/28/17 06:00 (Ambien) 5 mg HS PRN PO 07/28/17 06:00 (M-M-R Ii Inj) 0.5 ml ONCE ONCE SQ 07/28/17 16:00 07/28/17 16:01 (Boostrix Inj) 0.5 ml ONCE ONCE IM 07/28/17 16:00 07/28/17 16:01 (Mag-Al Plus Susp Liq) 15 ml Q8H PRN PO 07/28/17 06:00 (Zofran Odt) 4 mg Q6H PRN PO 07/28/17 06:00 Assessment/Plan Problem List: (1) delivery ICD Codes: O60.10X0 - labor with delivery, unspecified trimester, not applicable or unspecified (2) IV drug abuse complicating ICD Codes: O99.320 - Drug use complicating , unspecified trimester; F19.90 - Other psychoactive substance use, unspecified, uncomplicated (3) Elevated BP without diagnosis of hypertension ICD Codes: R03.0 - Elevated blood-pressure reading, without diagnosis of hypertension Assessment and Plan PPD 0- elevated BP on admission and immediate pp recovery, given a dose of procardia on L&D. First elevated bp on pp recently and nurse contacted me for further evaluation; this is the first time I have been contacted about elevated BP(at 1430). Since she has not had labs or IV in place, iv access team consulted. Will order PIH labs, and Protein to cr ratio. If she does rule in for pre-eclampsia, will need to return to L&D for magnesium. She will be started on procardia xl 30mg daily to control BP presently. Pt does use cocaine , which is known to increase BP, cannot rule this out as a reason for hypertension (UDS is positive). Will AVOID any Beta blockers as this in contraindicated with cocaine use. Jennifer Cervantes MD Jul 28, 2017 15:07
[2017-07-28 15:36] LABS: AUTOMATED NEUTROPHIL # 9.2 TH/MM3 (1.8-7.7); BASOPHIL % 0.3 % (0.0-2.0); EOSINOPHIL % 0.2 % (0.0-4.0); HEMO FLAGS DIFF FINAL; LYMPH % 15.4 % (9.0-44.0); LYMPHOCYTE # 1.8 TH/MM3 (1.0-4.8); MEAN CELL VOLUME 86.6 FL (80.0-100.0); MEAN CORPUSCULAR HEMOGLOBIN 28.6 PG (27.0-34.0); MONO % 4.9 % (0.0-8.0); NEUT % 79.2 % (16.0-70.0); PLATELET COUNT 209 TH/MM3 (150-450); RED BLOOD COUNT 3.81 MIL/MM3 (4.00-5.30); RED CELL DISTRIBUTION WIDTH 13.7 % (11.6-17.2); WHITE BLOOD COUNT 11.6 TH/MM3 (4.0-11.0)
[2017-07-28] MEDS ORDERED: MEASLES, MUMPS, RUBELLA VACCINE 0.5 ML VIAL SQ ONE (16:00)
[2017-07-28] MEDS ORDERED: DIPHTH/TETANUS/ACEL PERTUSSIS (BOOSTER) 0.5 ML VIAL/PFS IM ONE (16:00)
[2017-07-28] MEDS: NIFEdipine 30 MG SUSTAINED RELEASE TAB PO SCH (16:14)
[2017-07-28 16:18] LABS: ALKALINE PHOSPHATASE 250 U/L (45-117); ALT (GPT) 31 U/L (10-53); ANION GAP 7 MEQ/L (5-15); AST (GOT) 23 U/L (15-37); BICARBONATE 25.9 MEQ/L (21.0-32.0); BLOOD UREA NITROGEN 10 MG/DL (7-18); CHLORIDE 107 MEQ/L (98-107); GLOMERULAR FILTRATION RATE 91 ML/MIN (>89); POTASSIUM 3.9 MEQ/L (3.5-5.1); SODIUM (NA) 140 MEQ/L (136-145); TOTAL BILIRUBIN ADULT 0.4 MG/DL (0.2-1.0); URIC ACID 4.1 MG/DL (2.6-6.0)
[2017-07-28] MEDS ORDERED: MAGNESIUM SULFATE 40 GM PREMIX 1,000 ML IV SCH (19:05)
[2017-07-28] MEDS ORDERED: SODIUM CHLORIDE 0.9% FLUSH 5 ML FLUSH IV FLUSH PRN (19:15)
[2017-07-28] MEDS ORDERED: CALCIUM GLUCONATE 10% 1 GM/10 ML VIAL IV PUSH PRN (19:15)
[2017-07-28] MEDS ORDERED: MAGNESIUM SULFATE 4 GM PREMIX 100 ML IV ONE (19:15)
[2017-07-28] MEDS ORDERED: LIDOCAINE 2% JELLY 30 ML TUBE ONE (20:52)
[2017-07-28] MEDS ORDERED: SODIUM CHLORIDE 0.9% FLUSH 5 ML FLUSH IV FLUSH SCH (21:00)
[2017-07-29] VITALS (19 sets, daily range): BP systolic 116–146; BP diastolic 73–98; PULSE 55–84; RESP 7–18; TEMP 97.7–98.3
[2017-07-29] MEDS ORDERED: NIFEdipine 30 MG SUSTAINED RELEASE TAB PO PRN (00:15)
[2017-07-29] MEDS ORDERED: NIFEdipine 10 MG CAP PO PRN (00:30)
[2017-07-29] MEDS: LACTATED RINGER'S 1000 ML INJ 1,000 ML IV SCH ×3 (04:50→12:50)
[2017-07-29] MEDS: NIFEdipine 30 MG SUSTAINED RELEASE TAB PO SCH (09:10)
[2017-07-29] MEDS: cloNIDine HCL 0.1 MG TAB PO PRN ×2 (11:00→17:05)
[2017-07-29] MEDS: IBUPROFEN 600 MG TAB PO PRN ×2 (11:36→21:40)
[2017-07-29] MEDS: ACETAMINOPHEN 325 MG TAB PO PRN ×2 (11:36→21:40)
[2017-07-29] MEDS ORDERED: GABAPENTIN 300 MG CAP PO SCH (15:00)
[2017-07-29] MEDS: GABAPENTIN 300 MG CAP PO SCH ×2 (16:33→17:05)
[2017-07-29] MEDS: LABETALOL HCL 100 MG TAB PO SCH (21:00)
[2017-07-30 04:00] VITALS: PULSE 84; RESP 18; TEMP 97.8
[2017-07-30 07:30] VITALS: BP 152/97; PULSE 52; RESP 16; TEMP 98.1
--- NOTE | 2017-07-30 08:09 | HHI.OB ---
Subjective Post Day: 1 Remarks No symptoms of pre eclampsia (headache, blurred vision, NV) desires discharge to home; go to court and then present at [facility] tomorrow Objective Vitals/I&O Vital Signs Date Time Temp Pulse Resp B/P (MAP) Pulse Ox O2 Delivery O2 Flow Rate FiO2 07/30/17 04:00 97.8 84 18 07/29/17 20:00 119/93 (102) 07/29/17 20:00 98.0 67 07/29/17 20:00 18 07/29/17 16:50 97.7 07/29/17 12:00 17 07/29/17 12:00 97.7 7 07/29/17 09:16 97.7 18 07/29/17 09:10 84 132/98 (109) 07/29/17 09:06 72 146/91 (109) 07/29/17 09:02 76 07/29/17 09:01 63 Objective Remarks GENERAL: Well-nourished, well-developed patient. CARDIOVASCULAR: Regular rate and rhythm without murmurs, gallops, or rubs. RESPIRATORY: Breath sounds equal bilaterally. No accessory muscle use. ABDOMEN/GI: Abdomen soft, non-tender. Fundus: Firm, non-tender at umbilicus. GENITOURINARY: Light to moderate bleeding. EXTREMITIES: No cyanosis, non-tender, without signs of DVT. trace edema, normal reflexes Medications and IVs Current Medications Medications (Trade) Dose Ordered Sig/Jagruti Route Start Time Stop Time Status Last Admin Lactated Ringer's 1,000 ml @ 125 mls/hr Q8H IV 07/28/17 04:50 Lactated Ringer's 1,000 ml @ 3,000 mls/hr Q20M PRN IV 07/28/17 04:50 Sodium Chloride 1,000 ml @ 100 mls/hr Q10H PRN IV 07/28/17 05:10 (Xylocaine 1% Inj (50 ml)) 0.1 ml UNSCH X1 PRN I-DERMAL 07/28/17 05:00 07/31/17 04:59 (Bicitra Liq) 30 ml TABLE MACHINE OPERATOR PO 07/28/17 05:00 08/01/17 04:59 (Zofran Inj) 4 mg Q6H PRN IV PUSH 07/28/17 05:00 (fentaNYL INJ) 50 mcg Q1H PRN IV PUSH 07/28/17 05:00 (fentaNYL INJ) 100 mcg Q1H PRN IV PUSH 07/28/17 05:00 (Muri-Lube Oil) 10 ml UNSCH PRN TOPICAL 07/28/17 05:00 (Tylenol) 650 mg Q4H PRN PO 07/28/17 06:00 07/29/17 21:40 (Motrin) 600 mg Q6H PRN PO 07/28/17 06:00 07/29/17 21:40 (Americaine 20% Top Spr) 1 spray Q4H PRN TOPICAL 07/28/17 06:00 07/29/17 11:37 (Tucks Pads) 1 applic QID PRN TOPICAL 07/28/17 06:00 07/29/17 11:37 (Amelia-Colace) 2 tab Q12H PRN PO 07/28/17 06:00 07/29/17 11:37 (Ambien) 5 mg HS PRN PO 07/28/17 06:00 (Mag-Al Plus Susp Liq) 15 ml Q8H PRN PO 07/28/17 06:00 (Zofran Odt) 4 mg Q6H PRN PO 07/28/17 06:00 (Procardia Xl) 30 mg DAILY PO 07/28/17 15:00 07/29/17 09:10 Lactated Ringer's 1,000 ml @ 75 mls/hr [id number] IV 07/28/17 19:05 07/28/17 20:53 (NS Flush) 2 ml UNSCH PRN IV FLUSH 07/28/17 19:15 (NS Flush) 2 ml BID IV FLUSH 07/28/17 21:00 Magnesium Sulfate 1,000 ml @ 50 mls/hr Q20H IV 07/28/17 19:05 Future Hold 07/28/17 20:55 (Calcium Gluconate Inj) 1 gm UNSCH PRN IV PUSH 07/28/17 19:15 (Catapres) 0.1 mg Q4H PRN PO 07/29/17 10:30 07/29/17 17:05 (Neurontin) 300 mg TID PO 07/29/17 13:00 07/29/17 17:05 (Trandate) 100 mg Q12HR PO 07/29/17 21:00 07/29/17 21:00 Assessment/Plan Problem List: (1) delivery ICD Codes: O60.10X0 - labor with delivery, unspecified trimester, not applicable or unspecified (2) IV drug abuse complicating ICD Codes: O99.320 - Drug use complicating , unspecified trimester; F19.90 - Other psychoactive substance use, unspecified, uncomplicated (3) Elevated BP without diagnosis of hypertension ICD Codes: R03.0 - Elevated blood-pressure reading, without diagnosis of hypertension Assessment and Plan PPD 0- elevated BP on admission and immediate pp recovery, given a dose of procardia on L&D. First elevated bp on pp recently and nurse contacted me for further evaluation; this is the first time I have been contacted about elevated BP(at 1430). Since she has not had labs or IV in place, iv access team consulted. Will order PIH labs, and Protein to cr ratio. If she does rule in for pre-eclampsia, will need to return to L&D for magnesium. She will be started on procardia xl 30mg daily to control BP presently. Pt does use cocaine , which is known to increase BP, cannot rule this out as a reason for hypertension (UDS is positive). Will AVOID any Beta blockers as this in contraindicated with cocaine use. PPD 1 BP's elevateld this am but not received meds yet. Feels fine and clinically appears normal. UDS negative. I think peripartum pre eclampsia and anxiety the issues. Has court in am. Goal to discharge with BP meds to her home with baby and they will present at court in am and at [employer] pm. Cleared with Dr. Sweeney. DCF (Sofiya ) aware. Will have her own BP meds. RTO for BP check. Talia Altman MD Jul 30, 2017 08:09
[2017-07-30] MEDS ORDERED: NEUR300C PO (08:13)
[2017-07-30] MEDS ORDERED: NIFE30TA8 PO (08:13)
[2017-07-30] MEDS ORDERED: LABE100T2 PO (08:13)
[2017-07-30] MEDS ORDERED: CLON.1 PO (08:13)
--- NOTE | 2017-07-30 08:13 | HHI.DCPOC ---
Discharge Care Plan Report Symptoms to Your Doctor -Temperature above 100.5 degrees -Redness, of incision or excessive or foul smelling drainage -Unusual pain or calf pain -Increased vaginal bleeding -Painful or difficulty urinating -Feelings of extreme sadness or anxiety after 2 weeks Goals to Promote Your Health * To prevent worsening of your condition and complications * To maintain your health at the optimal level Directions to Meet Your Goals Take your medications as prescribed Follow your dietary instruction Follow activity as directed Ensure plenty of rest for recovery Drink fluids for hydration Keep your appointments as scheduled Take your immunizations and boosters as scheduled If your symptoms worsen call your PCP, if no PCP go to Urgent Care Center or Emergency Room Smoking is Dangerous to Your Health. Avoid second hand smoke Call the 24-hour crisis hotline for domestic abuse at Talia Altman MD Jul 30, 2017 08:13
[2017-07-30] MEDS: NIFEdipine 30 MG SUSTAINED RELEASE TAB PO SCH (08:37)
[2017-07-30] MEDS: GABAPENTIN 300 MG CAP PO SCH (08:37)
[2017-07-30] MEDS: LABETALOL HCL 100 MG TAB PO SCH (08:37)
[2017-07-30 10:05] VITALS: BP 146/92
[2017-07-30] MEDS: cloNIDine HCL 0.1 MG TAB PO PRN (10:09)
[2017-08-01 11:28] LABS: BATH SALTS (MDPV) UR NEG (NEG); ECSTASY (MDMA) UR NEG (NEG); GABAPENTIN UR POS (NEG); HEROIN (6-ACETYLMORPHINE) UR NEG (NEG); HYDROMORPHONE U NEG (NEG); K2 SPICE UR NEG (NEG); OBMETHADONE UR NEG (NEG); PHENCYCLIDINE URINE NEG (NEG)
== END 2017-07-30 10:59 | disposition home or self-care (01) | DRG 774 ==
LOC: HOBED 04:10 → H2EB 04:32 → H1EA 08:40 → H2EA 20:30 → H1EA 07-29 11:03
PROVIDERS: ADMIT Obstetrics & Gynecology; ATTEND Obstetrics & Gynecology
PROC: 10E0XZZ Delivery of Products of Conception, External Approach (ICD-10-PCS; principal; 2017-07-28)
DX: O60.14X0 Preterm labor third trimester with preterm delivery third trimester, not applicable or unspecified (principal); O14.15 Severe pre-eclampsia, complicating the puerperium; O99.324 Drug use complicating childbirth; O62.3 Precipitate labor; O99.344 Other mental disorders complicating childbirth; F11.10 Opioid abuse, uncomplicated; F14.10 Cocaine abuse, uncomplicated; Z37.0 Single live birth; Z3A.36 36 weeks gestation of pregnancy; F41.9 Anxiety disorder, unspecified; O77.0 Labor and delivery complicated by meconium in amniotic fluid
CPT/HCPCS: 59025; 76816; 76937; 80048; 80053; 80076; 80307; 81001; 82570; 84156; 84550; 85025; 86900; 86901; 87641; G0378; G0481; J2590; J3475; J7120